=== PATIENT | female | born 1980 | race Caucasian/White ===

== ENCOUNTER 2017-12-17 01:52 | Emergency (ER) | payer MEDICAID ==
[2017-12-17 02:03] VITALS: BP 109/69
[2017-12-17] MEDS ORDERED: TETANUS/DIPHTHERIA/PERTUSSIS 0.5 ML SYRINGE IM ONE (02:11)
--- NOTE | 2017-12-17 02:24 | ED Physician Documentation ---
PD HPI UPPER EXT INJURY - Stated complaint Stated Complaint: LT INDEX FINGER LACERATION - Chief complaint Chief Complaint: Laceration - History obtained from History obtained from: Patient - History of Present Illness Location: Left, Finger (index) Where injury occurred: Home Timing - onset: How many hours ago (10) - Additonal information Additional information: The patient is a 37-year-old female who cut her left index finger on broken porcelain about 10 hours prior to arrival. She is right-hand dominant. She denies any other injuries. Tetanus status is uncertain. She is adamant that she does not want stitches, but is willing to consider other treatment options. Review of Systems Skin: reports: Laceration (s) Neurologic: denies: Focal weakness, Numbness PD PAST MEDICAL HISTORY - Past Medical History Endocrine/Autoimmune: None Psych: Anxiety, Bipolar disorder - Past Surgical History Past Surgical History: No - Present Medications Home Medications: Ambulatory Orders Medication Instructions Recorded Confirmed Gabapentin 300 mg PO DAILY 08/05/15 08/05/15 [place] 150 mg PO DAILY 08/05/15 08/05/15 Naltrexone HCl 50 mg PO DAILY 08/05/15 08/05/15 QUEtiapine [SEROquel] 25 mg PO DAILY 08/05/15 08/05/15 busPIRone [Buspar] 5 mg PO DAILY 08/05/15 08/05/15 - Allergies Allergies/Adverse Reactions: Allergies Allergy/AdvReac Type Severity Reaction Status Date / Time No Known Drug Allergies Allergy Verified 12/17/17 01:57 - Social History Does the pt smoke?: Yes Smoking Status: Current every day smoker Does the pt drink ETOH?: No Does the pt have substance abuse?: No - Immunizations Immunizations are current?: No Immunizations: TDAP >10years/unknown - POLST Patient has POLST: No PD ED PE NORMAL - Vitals Vital signs reviewed: Yes (Normal) - General General: Alert and oriented X 3, Well developed/nourished - Respiratory Respiratory: No respiratory distress - Derm Derm: No rash - Extremities Extremities: Other (There is a 1 cm, flap type laceration at the volar pad of the distal phalanx of the left index finger. The wound edges are well opposed. There is no joint involvement. Distal neurovascular is intact.) - Neuro Neuro: Alert and oriented X 3, No motor deficit, No sensory deficit Results - Vitals Vitals: Vital Signs - 24 hr 12/17/17 01:55 Temperature 36.0 C L Heart Rate 78 Respiratory 15 Rate Blood Pressure 109/69 O2 Saturation 100 Oxygen O2 Source Room air Procedures - Laceration (location) left index finger Length in cm: 1 Wound type: Curved, Flap Neurovascular status: Sensory intact, Motor intact, Vascular intact Wound Preparation: Hibiclens, Irrigated copiously NS. No: FB identified Skin layer closure: Dermabond Other: Patient tolerated well, No complications, Neurovascular intact, Dressing applied, Tetanus booster given Complexity: Simple PD MEDICAL DECISION MAKING - ED course Complexity details: considered differential, d/w patient, d/w family ED course: The patient's presentation is significant for 1 cm laceration at the distal phalanx of the left index finger. She was adamant that she did not want suture repair of the wound. Treatment in the emergency department included thorough cleaning of the wound, and repair with Dermabond. Tetanus booster was administered. I discussed with the patient and her male wool supplier the expected course of injury, symptomatic treatment and outpatient follow-up, as well as potentially worrisome signs or symptoms that should prompt reevaluation in the emergency department. Departure - Departure Disposition: 01 Home, Self Care Clinical Impression: Finger laceration Qualifiers: Encounter type: initial encounter Finger: index finger Damage to nail status: without damage Foreign body presence: without foreign body Laterality: left Qualified Code(s): S61.211A - Laceration without foreign body of left index finger without damage to nail, initial encounter Condition: Stable Instructions: ED Laceration Hand Comments: Keep the wound clean, and apply new wound dressing daily. You can use Tylenol or ibuprofen if needed for discomfort. Return to the emergency department if you develop any sign of infection, or otherwise worsening symptoms. Discharge Date/Time: 12/17/17 02:27
== END 2017-12-17 02:27 | disposition home or self-care (01) ==
LOC: ED 01:52
DX: S61.221A Laceration with foreign body of left index finger without damage to nail, initial encounter (principal); W26.8XXA Contact with other sharp object(s), not elsewhere classified, initial encounter; Y92.009 Unspecified place in unspecified non-institutional (private) residence as the place of occurrence of the external cause; Z23 Encounter for immunization; F17.200 Nicotine dependence, unspecified, uncomplicated
CPT/HCPCS: 12001; 90471; 99282

== ENCOUNTER 2018-05-16 16:11 | Emergency (ER) | payer MEDICAID ==
[2018-05-16 16:21] VITALS: BP 141/91
--- NOTE | 2018-05-16 17:04 | ED Physician Documentation ---
History of Present Illness - Stated complaint Stated Complaint: WANTS BLOOD TESTING - Chief complaint Chief Complaint: General - History obtained from History obtained from: Patient - Additonal information Additional information: The patient is a 37-year-old asymptomatic female who is requesting a blood test for STDs because her boyfriend developed sores on his penis one week ago. She has not intercourse with her boyfriend for 2 weeks. She denies any current or previous vaginal discharge, pain, or history of STDs. Her boyfriend has not been examined by medical personnel. Review of Systems Constitutional: denies: Fever Throat: denies: Sore throat Respiratory: denies: Cough : denies: Dysuria, Discharge PD PAST MEDICAL HISTORY - Past Medical History Past Medical History: No Endocrine/Autoimmune: None Psych: Anxiety, Bipolar disorder - Past Surgical History Past Surgical History: No - Present Medications Home Medications: Ambulatory Orders Medication Instructions Recorded Confirmed Gabapentin 300 mg PO DAILY 08/05/15 08/05/15 [place] 150 mg PO DAILY 08/05/15 08/05/15 Naltrexone HCl 50 mg PO DAILY 08/05/15 08/05/15 QUEtiapine [SEROquel] 25 mg PO DAILY 08/05/15 08/05/15 busPIRone [Buspar] 5 mg PO DAILY 08/05/15 08/05/15 - Allergies Allergies/Adverse Reactions: Allergies Allergy/AdvReac Type Severity Reaction Status Date / Time No Known Drug Allergies Allergy Verified 12/17/17 01:57 - Social History Does the pt smoke?: Yes Smoking Status: Current every day smoker Does the pt drink ETOH?: No Does the pt have substance abuse?: No - Immunizations Immunizations are current?: No Immunizations: TDAP >10years/unknown - POLST Patient has POLST: No PD ED PE NORMAL - Vitals Vital signs reviewed: Yes (Initially hypertensive.) - General General: Alert and oriented X 3, Well developed/nourished, Other (Intermittently choking back tears.) - HEENT HEENT: Atraumatic, Pharynx benign - Respiratory Respiratory: No respiratory distress - Female Female : Deferred - Derm Derm: No rash - Neuro Neuro: Alert and oriented X 3, No motor deficit, Normal speech Results - Vitals Vitals: Oxygen O2 Source Room air PD MEDICAL DECISION MAKING - ED course Complexity details: considered differential, d/w patient ED course: A medical screening exam was performed in this patient who presented for STD evaluation based on her concern about sores that have appeared on her boyfriend's penis. The patient is asymptomatic, without discharge or vaginal sores. Her boyfriend has not been evaluated for diagnosis. I advised her that a blood test would not be a good diagnostic test in this instance. I advised her that her boyfriend should seek medical evaluation, and encouraged her to follow up with a tours captain for thorough gynecologic evaluation. Departure - Departure Disposition: 01 Home, Self Care Clinical Impression: Encounter for medical screening examination Condition: Stable Instructions: ED Screening Exam Medical Nonurgent Follow-Up: [facility] [Provider Group] Comments: Have your boyfriend evaluated by medical professional for diagnosis. Schedule follow-up appointment at the [facility]. Return to the emergency department if you develop any symptoms of vaginal pain, sores, or discharge. Discharge Date/Time: 05/16/18 17:12
== END 2018-05-16 17:12 | disposition home or self-care (01) ==
LOC: ED 16:11
DX: Z20.2 Contact with and (suspected) exposure to infections with a predominantly sexual mode of transmission (principal); F17.200 Nicotine dependence, unspecified, uncomplicated
CPT/HCPCS: 99282